=== PATIENT | male | born 1955 | race Caucasian/White ===

== ENCOUNTER 2016-09-23 07:26 | Outpatient (CLI) | payer MEDICARE, OTHER ==
[2016-09-23 08:29] LABS: Hemoglobin A1c 9.3 % (4.0-6.0)
== END 2016-09-23 07:27 | disposition home or self-care (01) ==
LOC: NAV LABSP 07:26
PROVIDERS: ATTEND Internal Medicine
DX: E11.9 Type 2 diabetes mellitus without complications (principal)
CPT/HCPCS: 36415; 83036

== ENCOUNTER 2016-10-20 18:57 | Outpatient (CLI) | payer MEDICARE, OTHER | END 2016-10-20 18:58 | disposition home or self-care (01) | LOC: NAV LAB 18:57 | PROVIDERS: ATTEND Internal Medicine | DX: R19.7 Diarrhea, unspecified (principal); R10.9 Unspecified abdominal pain | CPT/HCPCS: 87324; 87449 ==